=== PATIENT | female | born 1980 | race Two or more races ===

== ENCOUNTER → 2019-10-12 | Outpatient (CLI) | payer OTHER | END | disposition home or self-care (01) | LOC: PRENATAL 10-09 15:00 | DX: O36.80X1 Pregnancy with inconclusive fetal viability, fetus 1 (principal); Z36.82 Encounter for antenatal screening for nuchal translucency; O09.511 Supervision of elderly primigravida, first trimester ==

== ENCOUNTER → 2019-12-04 | Outpatient (CLI) | payer OTHER | END | disposition home or self-care (01) | LOC: PRENATAL 14:52 | DX: O35.3XX0 Maternal care for (suspected) damage to fetus from viral disease in mother, not applicable or unspecified (principal); O99.282 Endocrine, nutritional and metabolic diseases complicating pregnancy, second trimester; O09.512 Supervision of elderly primigravida, second trimester; Z36.89 Encounter for other specified antenatal screening ==

== ENCOUNTER → 2020-01-31 | Outpatient (CLI) | payer OTHER | END | disposition home or self-care (01) | LOC: PRENATAL 01-29 15:00 | PROVIDERS: ATTEND Obstetrics & Gynecology | DX: O26.843 Uterine size-date discrepancy, third trimester (principal); O09.513 Supervision of elderly primigravida, third trimester; O99.283 Endocrine, nutritional and metabolic diseases complicating pregnancy, third trimester; O99.89 Other specified diseases and conditions complicating pregnancy, childbirth and the puerperium ==

== ENCOUNTER 2020-03-04 18:15 | Inpatient (IN) | payer OTHER ==
[~2020-03-04] VITALS: Ht 160 cm; Wt 2.3 kg
[2020-03-04] MEDS ORDERED: SYNTHROID100 MCG PO (21:14)
[2020-03-04] MEDS ORDERED: PRENATAL TABLE1 EAC1 PO (21:14)
[2020-03-04] MEDS ORDERED: TUMS200 MG PO (21:15)
[2020-03-10] MEDS ORDERED: PRENATAL TABLE1 EAC1 PO (13:06)
[2020-03-10] MEDS ORDERED: TUMS200 MG PO (13:06)
[2020-03-10] MEDS ORDERED: OXYC1TAB9 PO (13:07)
[2020-03-10] MEDS ORDERED: DOCUSATE SODIU100 MG PO (13:07)
== END 2020-03-10 15:47 | disposition home or self-care (01) | DRG 788 ==
LOC: OBS/DEL 18:15 → LDR 03-05 09:18 → SURG-SUITE 03-05 09:18
PROVIDERS: ADMIT Obstetrics & Gynecology; ATTEND Obstetrics & Gynecology
PROC: 4A1HXCZ Monitoring of Products of Conception, Cardiac Rate, External Approach (ICD-10-PCS; 2020-03-05)
PROC: BY4FZZZ Ultrasonography of Third Trimester, Single Fetus (ICD-10-PCS; 2020-03-05)
PROC: 10D00Z1 Extraction of Products of Conception, Low, Open Approach (ICD-10-PCS; principal; 2020-03-06 19:00)
DX: O60.14X0 Preterm labor third trimester with preterm delivery third trimester, not applicable or unspecified (principal); O26.843 Uterine size-date discrepancy, third trimester; O26.893 Other specified pregnancy related conditions, third trimester; Z20.828 Contact with and (suspected) exposure to other viral communicable diseases; Z3A.33 33 weeks gestation of pregnancy; Z37.0 Single live birth

== ENCOUNTER 2021-08-12 08:00 | Outpatient (CLI) | payer OTHER ==
[~2021-08-12 08:00] MED LIST: DOCUSATE SODIU100 MG PO; OXYC1TAB9 PO; PRENATAL TABLE1 EAC1 PO; SYNTHROID100 MCG PO; TUMS200 MG PO
== END 2021-08-12 08:30 | disposition home or self-care (01) ==
LOC: PPH VACUNA 08:00
PROVIDERS: ATTEND Emergency Medicine Pediatric Emergency Medicine
DX: Z23 Encounter for immunization (principal)